=== PATIENT | female | born 1935 | race Caucasian/White ===

== ENCOUNTER → 2018-06-07 | Outpatient (CLI) | payer MEDICARE, OTHER | END | disposition home or self-care (01) | LOC: RADPV 12:32 | PROVIDERS: ATTEND Legal Medicine | DX: M47.892 Other spondylosis, cervical region (principal); M48.061 Spinal stenosis, lumbar region without neurogenic claudication; M43.13 Spondylolisthesis, cervicothoracic region; M47.896 Other spondylosis, lumbar region; M43.16 Spondylolisthesis, lumbar region; M81.0 Age-related osteoporosis without current pathological fracture; I70.0 Atherosclerosis of aorta; I82.511 Chronic embolism and thrombosis of right femoral vein; I83.91 Asymptomatic varicose veins of right lower extremity; E04.1 Nontoxic single thyroid nodule; M79.604 Pain in right leg; E89.0 Postprocedural hypothyroidism | CPT/HCPCS: 72040; 72070; 72100; 76536; 93970 ==

== ENCOUNTER → 2018-07-15 | Outpatient (CLI) | payer MEDICARE, OTHER | END | disposition home or self-care (01) | LOC: RADPV 10:37 | PROVIDERS: ATTEND Legal Medicine | DX: I82.409 Acute embolism and thrombosis of unspecified deep veins of unspecified lower extremity (principal); R60.0 Localized edema | CPT/HCPCS: 93971 ==